=== PATIENT | male | born 1995 | race Caucasian/White ===

== ENCOUNTER 2025-04-25 08:23 | Outpatient (CLI) | payer OTHER | END 2025-04-25 08:24 | disposition home or self-care (01) | LOC: CSHSLEEP 08:23 | PROVIDERS: ATTEND Internal Medicine | DX: G47.30 Sleep apnea, unspecified (principal); R53.83 Other fatigue; R51.9 Headache, unspecified; R06.83 Snoring; F32.A Depression, unspecified; F43.10 Post-traumatic stress disorder, unspecified | CPT/HCPCS: 95800 ==